=== PATIENT | male | born 1945 | race Caucasian/White ===

== ENCOUNTER → 2024-10-14 | Day surgery (SDC) | payer MEDICARE ==
[~2024-10-14] MED LIST: LACTATED RINGERS 1,000 ML IV SCH; SODIUM CHLORIDE 0.9% 1,000 ML IV SCH; ceFAZolin 1 GM in SODIUM CHLORIDE 0.9% IRRIG BTL 250 ML IRRIGATION PRN
== END ==
LOC: CATHEP 15:59
PROVIDERS: ATTEND Internal Medicine Clinical Cardiac Electrophysiology
DX: Z53.8 Procedure and treatment not carried out for other reasons (principal); R00.1 Bradycardia, unspecified

== ENCOUNTER 2024-10-21 11:53 | Day surgery (SDC) | payer MEDICARE ==
[2024-10-21] MEDS: IV FLUID CONTINUATION 1,000 ML IV ONE (12:41)
[2024-10-21 12:44] VITALS: RESP 18
[2024-10-21] MEDS ORDERED: PHENYLEPHRINE-0.9% NACL SYG 1,000 MCG/10 ML SYRINGE ONE (14:21)
[2024-10-21] MEDS ORDERED: PHENYLEPHRINE 10 MG/ML VIAL ONE (14:21)
[2024-10-21] MEDS ORDERED: MIDAZOLAM 2 MG/2 ML VIAL ONE (14:21)
[2024-10-21] MEDS ORDERED: PROPOFOL 10 MG/ML 20 ML VIAL IV ONE (14:21)
[2024-10-21] MEDS ORDERED: fentaNYL (PF) 50 MCG/ML 2 ML AMP ONE (14:21)
[2024-10-21] MEDS: ceFAZolin 1 GM in SODIUM CHLORIDE 0.9% IRRIG BTL 250 ML IRRIGATION PRN (14:50)
[2024-10-21] MEDS ORDERED: ACETAMINOPHEN TAB 325 MG TAB PO PRN (15:55)
--- NOTE | 2024-10-21 15:59 | P.EPPROC ---
- EP Procedure Note Electrophysiology Procedure Note: Transvenous temporary pacing procedure Indication for the procedure: Severe underlying bradycardia Patient was brought to the EP lab in a fasting state. Written informed consent was obtained prior to the procedure. The right groin was prepped and draped as a protocol. A 6-Q[place] sheath was placed in the right femoral vein. Via this, a temporary pacing catheter was placed in the right ventricle. Thresholds were interrogated. Temporary pacing was performed through the rest of the procedure. At the end of the entire procedure, the TVP was removed. The sheath was removed and hemostasis was assured. Patient tolerated the procedure well without any acute complications. Procedure performed Transvenous temporary pacing
--- NOTE | 2024-10-21 16:03 | P.EPPROC ---
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 Device at [facility], normal battery depletion. Patient brought in for dual-chamber pacemaker generator change. LV function normal Procedure Dual-chamber pacemaker generator change. Details Patient was brought to the EP lab in a fasting state. Written informed consent was obtained prior to the procedure. Conscious sedation provided. IV antibiotics administered including vancomycin. Local anesthesia admini stered. The previous incision was in the proximity of the clavicle, almost parallel to it and the pocket for the pacemaker was subclavicular. A new subfascial pocket was planned along with a new incision A 4 cm incision made in the pectoral area. New subfascial pocket made. Hemostasis was assured. Partial capsulectomy performed. Atrial lead position the right atrial appendage. Stable on fluoroscopy without any fractures or breaks P waves 2.3 mV, pacing impedance 361 ohms and pacing threshold 0.5 V at 0.4 ms RV lead position in the RV apex. No R waves, complete heart block. 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
[2024-10-21] MEDS: SODIUM CHLORIDE 0.9% 1,000 ML IV SCH ×2 (16:33→16:34)
[2024-10-21] MEDS: LACTATED RINGERS 1,000 ML IV SCH (16:33)
[2024-10-21] MEDS: VANCOMYCIN 1,000 MG in SODIUM CHLORIDE 0.9% 250 ML IVPB STA (17:28)
[2024-10-21] MEDS: ACETAMINOPHEN IV (For NPO) 1,000 MG in EMPTY BAG 1 BAG IVPB ONE (17:52)
[2024-10-21 18:47] VITALS: TEMP 97.4
[2024-10-21 18:52] VITALS: BP 143/73; PULSE 60
[2024-10-21] MEDS ORDERED: ASPIRIN 81 MG PO SCH (21:00)
[2024-10-21] MEDS ORDERED: PROPRANOLOL 40 MG TAB PO SCH (21:00)
[2024-10-22] MEDS ORDERED: ATORVASTATIN 80 MG TAB PO SCH (09:00)
[2024-10-22] MEDS ORDERED: EZETIMIBE 10 MG TAB PO SCH (09:00)
[2024-10-22] MEDS ORDERED: VALSARTAN 160 MG TAB PO SCH (09:00)
== END 2024-10-21 20:35 | disposition home or self-care (01) ==
LOC: CATHEP 11:53 → 6NMEDSUR 15:47 → CATHEP 20:35
PROVIDERS: ATTEND Internal Medicine Clinical Cardiac Electrophysiology
DX: I25.10 Atherosclerotic heart disease of native coronary artery without angina pectoris (principal); I44.2 Atrioventricular block, complete; I10 Essential (primary) hypertension; E78.5 Hyperlipidemia, unspecified; M19.90 Unspecified osteoarthritis, unspecified site; Z72.0 Tobacco use; Z45.010 Encounter for checking and testing of cardiac pacemaker pulse generator [battery]; Z79.82 Long term (current) use of aspirin; Z79.02 Long term (current) use of antithrombotics/antiplatelets; Z79.899 Other long term (current) drug therapy
CPT/HCPCS: 33228; C1894; C1769; C1760; C2630; C1785; J2250; J0690; J3010; J2704; J2371 ×2